=== PATIENT | female | born 1990 | race Two or more races ===

== ENCOUNTER 2022-07-18 11:45 | Emergency (ER) | payer SELFPAY ==
[~2022-07-18] VITALS: Ht 157.5 cm; Wt 64.5 kg
[2022-07-18 12:10] VITALS: BP 129/76
[2022-07-18] MEDS ORDERED: AZIT250T8 PO (14:43)
[2022-07-18] MEDS ORDERED: IBUP600T27 PO (14:43)
== END 2022-07-18 15:36 | disposition home or self-care (01) ==
LOC: ER 11:45
DX: J06.9 Acute upper respiratory infection, unspecified (principal); J03.90 Acute tonsillitis, unspecified

== ENCOUNTER 2022-10-18 12:13 | Emergency (ER) | payer MEDICAID, OTHER ==
[~2022-10-18 12:13] MED LIST: AZIT250T8 PO; IBUP600T27 PO
[2022-10-18 14:17] VITALS: BP 125/79
[2022-10-18] MEDS ORDERED: AZIT250T8 PO (14:20)
== END 2022-10-18 14:30 | disposition home or self-care (01) ==
LOC: ER 12:13
DX: J03.90 Acute tonsillitis, unspecified (principal)

== ENCOUNTER 2022-12-19 08:01 | Emergency (ER) | payer MEDICAID ==
[~2022-12-19] VITALS: Ht 152.4 cm; Wt 61.1 kg
[~2022-12-19 08:01] MED LIST changes: +AZIT-81 PO; -AZIT250T8 PO; +IBUP-1454 PO; -IBUP600T27 PO
[2022-12-19 08:48] VITALS: BP 120/77
[2022-12-19] MEDS ORDERED: cefTRIAXone SOD 1,000 MG VL IM ONE (09:00)
[2022-12-19] MEDS ORDERED: ACETAMINOPHEN 500 MG TAB PO ONE (09:00)
[2022-12-19] MEDS ORDERED: BACDST PO (09:06)
[2022-12-19] MEDS ORDERED: IBUP-1454 PO (09:06)
[2022-12-19 09:23] LABS: Urine Bacteria FEW /hpf (None Seen); Urine Blood TRACE /uL (Negative); Urine Budding Yeast MODERATE /hpf (None Seen); Urine Specific Gravity 1.012 (1.001-1.035); Urine WBC 137 /hpf (0 - 5)
== END 2022-12-19 09:11 | disposition home or self-care (01) ==
LOC: ER 08:01
DX: N39.0 Urinary tract infection, site not specified (principal); Z88.1 Allergy status to other antibiotic agents; Z88.2 Allergy status to sulfonamides
CPT/HCPCS: 81001; 96372; 99283; J0696

== ENCOUNTER 2023-02-13 17:31 | Emergency (ER) | payer MEDICAID ==
[~2023-02-13] VITALS: Ht 152.4 cm; Wt 59.2 kg
[~2023-02-13 17:31] MED LIST changes: +BACDST PO
[2023-02-13 19:31] LABS: Hematocrit 39.1 % (36.0-46.0); Hemoglobin 13.1 g/dL (12.2-16.2); Mean Corpuscular Hgb Conc. 33.5 g/dL (32.0-36.0); Mean Corpuscular Volume 89.7 fL (80.0-100.0); Red Blood Cells 4.36 10^6/uL (4.0-5.20); Red Cell Distribution Width 13.4 % (11.8-14.3); White Blood Cell 14.8 10^3/uL (4.4-10.8)
[2023-02-13 19:33] LABS: Basophils % (manual) 0 (0.0-2.0); Blast Cells 0; Myelocytes % 0; Promyelocytes % 0; Reactive Lymphocytes 0
[2023-02-13 19:40] LABS: Urine Bacteria MANY /hpf (None Seen); Urine Blood 2+ /uL (Negative); Urine Clarity HAZY (Clear); Urine Color Yellow (Yellow); Urine Protein, UAD 2+ (Negative); Urine Specific Gravity 1.021 (1.001-1.035); Urine WBC 41 /hpf (0 - 5)
[2023-02-13] MEDS ORDERED: cefTRIAXone 1GM/50ML D5W 50 ML IV ONE (19:45)
[2023-02-13] MEDS ORDERED: SODIUM CHLORIDE 0.9% 1,000 ML IV ONE (19:45)
[2023-02-13 19:50] LABS: Albumin 3.2 g/dL (3.4-5.0); Calcium 8.7 mg/dL (8.5-10.1); Potassium 3.3 mmol/L (3.5-5.1)
[2023-02-13 19:53] LABS: BUN/Creatinine Ratio 11.9 (10.0-20.0); Bilirubin, Total 1.8 mg/dL (0.2-1.0); Total Protein 8.2 g/dL (6.4-8.2)
[2023-02-13] MEDS ORDERED: ZOFR4T PO (20:28)
[2023-02-13] MEDS ORDERED: CIPR-173 PO (20:28)
[2023-02-13 20:44] LABS: Band Neutrophils % (manual) 4; Eosinophils % (manual) 1 (0-7); Lymphocytes % (manual) 13 (10.0-50.0); Metamyelocytes % 2; Monocytes % (manual) 6 (0-12); Platelet Estimate Adequate
[2023-02-13 20:50] VITALS: PULSE 96; RESP 16; O2SAT 94
[2023-02-13 20:51] VITALS: BP 124/82; PULSE 80; RESP 18; O2SAT 94
[2023-02-13 21:00] VITALS: TEMP 100.3
[2023-02-13] MEDS ORDERED: KETOROLAC TROMETH 30 MG/ML 1ML VIAL IV ONE (21:00)
[2023-02-13] MEDS ORDERED: ACETAMINOPHEN 325 MG TAB PO ONE (21:00)
== END 2023-02-13 21:28 | disposition home or self-care (01) ==
LOC: ER 17:31
DX: N10 Acute pyelonephritis (principal); Z79.1 Long term (current) use of non-steroidal anti-inflammatories (NSAID); Z79.2 Long term (current) use of antibiotics; Z79.899 Other long term (current) drug therapy
CPT/HCPCS: 36415; 74176; 80053; 81001; 85007; 85027; 96365; 96375; 99285; J0696; J1885; J7030